=== PATIENT | female | born 1985 | race Caucasian/White ===

== ENCOUNTER 2016-12-17 14:04 | Emergency (ER) | payer OTHER ==
[~2016-12-17] VITALS: Ht 175.3 cm; Wt 68.0 kg
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
[2016-12-17] MEDS: KETOROLAC 60 MG/2 ML VIAL IM ONE (15:18)
[2016-12-17 15:30] VITALS: BP 114/81
== END 2016-12-17 15:28 | disposition home or self-care (01) ==
LOC: EDUNIT# 14:04 → ER 14:07
DX: S09.90XA Unspecified injury of head, initial encounter (principal); V89.2XXA Person injured in unspecified motor-vehicle accident, traffic, initial encounter
CPT/HCPCS: 70450; 70486; 72125; 99284

== ENCOUNTER → 2020-04-22 | Outpatient (CLI) | payer BC, OTHER ==
--- NOTE | 2020-04-22 12:38 | Diagnostic Imaging Report ---
PROCEDURE: US Thyroid. TECHNIQUE: Multiple Real-time grayscale images were obtained of the thyroid in various projections. INDICATION: Hypothyroidism. COMPARISON: No prior studies are available for comparison. FINDINGS: The right lobe of thyroid measures 5.6 x 1.5 x 2.2 cm and the left lobe measures 4.9 x 1.3 x 1.8 cm. Both lobes of the thyroid are somewhat heterogeneous but no discrete thyroid mass is detected. IMPRESSION: Thyroid heterogeneity. No discrete thyroid mass is detected. Dictated by: Dictated on workstation # [id number]
== END ==
LOC: RAD 11:08
PROVIDERS: ATTEND Family Medicine
DX: E03.9 Hypothyroidism, unspecified (principal)
CPT/HCPCS: 76536